=== PATIENT | male | born 1950 | race Caucasian/White ===

== ENCOUNTER 2019-05-06 11:36 | Observation (INO) ==
[2019-05-06] MEDS ORDERED: ASPIRIN 325 MG TABLET PO STA (11:53)
[2019-05-06] MEDS ORDERED: NITROGLYCERIN SL 0.4 MG TABLET SL PRN (11:53)
[2019-05-06 12:29] LABS: Basophils # 0.1 10*3/uL (0.0-0.2); Basophils % 0.9 % (0.0-0.8); Eosinophils # 0.4 10*3/uL (0.0-0.87); Eosinophils % 5.4 % (0.00-10.9); Hematocrit 42.8 VOL% (42.0-52.0); Hemoglobin 13.8 GM/DL (14.0-18.0); Immature Granulocytes % 0.3 %; Immature Granulocytes Absolute 0.02 #; Lymphocytes # 1.4 10*3/uL (1.4-4.0); Lymphocytes % 20.8 % (21.2-54.2); Mean Corpuscular HGB Conc 32.2 GM/DL (32-36); Mean Corpuscular Volume 89.4 FL (87-102); Mean Platelet Volume 9.3 FL (9.6-12.0); Monocytes % 10.3 % (1.7-12.7); Neutrophils % 62.3 % (38.7-73.9); Platelet Count 217 T/CUMM (130-400); Red Blood Count 4.79 MC/CUMM (3.8-5.5); Red Cell Distribution Width 13.6 % (9.3-17.3); White Blood Count 6.5 T/CUMM (4-12)
[2019-05-06 12:44] LABS: INR 0.9; Partial Thromboplastin Time 26.9 SECS (0-40)
[2019-05-06 12:52] LABS: Calcium 8.7 MG/DL (8.5-10.1); Osmolality,Calculated 285.3 MOS/KG (273-304)
[2019-05-06] MEDS ORDERED: MAGNESIUM SULF RIDER 2 GM in PREMIX 1 EACH IV PRN (15:00)
[2019-05-06] MEDS ORDERED: ZALEPLON 5 MG CAPSULE PO PRN (15:00)
[2019-05-06] MEDS ORDERED: POTASSIUM CHLORIDE 20 MEQ TABLET PO PRN (15:00)
[2019-05-06] MEDS ORDERED: MAGNESIUM SULF RIDER 4 GM in PREMIX 1 EACH IV PRN (15:00)
[2019-05-06] MEDS ORDERED: ONDANSETRON 4 MG/2 ML VIAL IV PRN (15:00)
[2019-05-06] MEDS ORDERED: ACETAMINOPHEN 325 MG TABLET PO PRN (15:00)
[2019-05-06] MEDS: SODIUM CHLORIDE 0.45% 1,000 ML IV SCH (18:49)
[2019-05-06] MEDS ORDERED: CETIRIZINE 10 MG TABLET PO SCH (21:00)
[2019-05-06] MEDS ORDERED: LISINOPRIL 5 MG TABLET PO SCH (21:00)
[2019-05-06] MEDS ORDERED: NEFAZODONE PO SCH (21:00)
[2019-05-06] MEDS: ENOXAPARIN 100 MG/ML SYRINGE SUBCUT SCH (21:09)
[2019-05-07] MEDS: SODIUM CHLORIDE 0.45% 1,000 ML IV SCH (01:35)
[2019-05-07 06:03] LABS: Risk Ratio 4.26; VLDL CHOLESTEROL 27.2 MG/DL
[2019-05-07 07:54] VITALS: BP 167/86
[2019-05-07 08:49] LABS: Troponin I < 0.015 NG/ML (0.00-0.045)
[2019-05-07] MEDS ORDERED: LISINOPRIL 5 MG TABLET PO SCH ×2 (08:57→21:00)
[2019-05-07] MEDS ORDERED: VERAPAMIL SR 240 MG TABLET PO SCH (09:00)
[2019-05-07] MEDS ORDERED: ACETAMINOPHEN 325 MG TABLET PO SCH (09:00)
[2019-05-07] MEDS ORDERED: PANTOPRAZOLE 40 MG TABLET PO SCH (09:00)
[2019-05-07] MEDS ORDERED: GABAPENTIN 100 MG CAPSULE PO SCH (09:00)
[2019-05-07] MEDS ORDERED: ASPIRIN EC 325 MG TABLET PO SCH (09:00)
[2019-05-07] MEDS ORDERED: ASPIRIN EC 81 MG TABLET PO SCH (09:00)
[2019-05-07] MEDS: ENOXAPARIN 100 MG/ML SYRINGE SUBCUT SCH (09:25)
== END 2019-05-07 11:05 | disposition home or self-care (01) ==
LOC: N.EDINP 11:36 → N.ED 11:36 → N.TELEN 15:30
PROVIDERS: ADMIT Internal Medicine Cardiovascular Disease; ATTEND Internal Medicine Cardiovascular Disease